=== PATIENT | male | born 1995 | race Caucasian/White ===

== ENCOUNTER 2021-10-29 12:05 | Inpatient (IN) | payer BC, MEDICAID ==
[~2021-10-29] VITALS: Ht 175.3 cm; Wt 68.9 kg
[2021-10-29] MEDS ORDERED: ZOLPIDEM TARTRATE 10 MG TABLET PO PRN (12:15)
[2021-10-29] MEDS ORDERED: PNEUMOCOCCAL VACCINE POLYVALENT 0.5 ML VIAL [PPSV23] IM. ONE (20:45)
[2021-10-29] MEDS: LORazepam 2 MG TABLET PO PRN (21:07)
[2021-10-29] MEDS: HALOPERIDOL 5 MG TABLET PO PRN (21:07)
[2021-10-29] MEDS ORDERED: RISP2TAB45 PO (21:40)
[2021-10-29] MEDS ORDERED: SERT-158 PO (21:42)
[2021-10-29] MEDS ORDERED: LITH300C3 PO (21:42)
[2021-10-29] MEDS ORDERED: DIPH-1080 PO (21:42)
[2021-10-29 21:43] VITALS: BP 127/64
[2021-10-30] MEDS ORDERED: CloNIDine HCL 0.1 MG TABLET PO PRN (07:00)
[2021-10-30] MEDS ORDERED: ALBUTEROL SULFATE HFA 90 MCG/PUFF 8 GM INHALER IH PRN (07:00)
[2021-10-30] MEDS ORDERED: DOCUSATE SODIUM 100 MG CAPSULE PO PRN (07:00)
[2021-10-30] MEDS ORDERED: MAG HYDROX/AL HYDROX/SIMETH ES 30 ML SUSPENSION UDCUP PO PRN (07:00)
[2021-10-30] MEDS ORDERED: MAGNESIUM HYDROXIDE SUSPENSION 30 ML UDCUP PO PRN (07:00)
[2021-10-30] MEDS ORDERED: PETROLATUM,WHITE 28 GM JELLY TP PRN (07:00)
[2021-10-30] MEDS ORDERED: BACITRACIN 28 GM OINTMENT TP PRN (07:00)
[2021-10-30] MEDS ORDERED: OMEPRAZOLE 20 MG CAPSULE PO PRN (07:00)
[2021-10-30] MEDS ORDERED: LOPERAMIDE HCL 2 MG CAPSULE PO PRN (07:00)
[2021-10-30] MEDS ORDERED: BENZOCAINE/MENTHOL LOZENGE PO PRN (07:00)
[2021-10-30] MEDS ORDERED: IBUPROFEN 600 MG TABLET PO PRN (07:00)
[2021-10-30] MEDS ORDERED: ACETAMINOPHEN 325 MG TABLET PO PRN (07:00)
[2021-10-30] MEDS ORDERED: ONDANSETRON HCL 4 MG TABLET PO PRN (07:00)
[2021-10-30 07:18] LABS: BASOPHILS % (AUTO) 0.3 % (0.0-2.0); EOSINOPHILS % (AUTO) 9.1 % (1.0-6.0); HEMOGLOBIN 14.4 g/dL (13.5-17.5); LYMPHOCYTES # (AUTO) 2.2 K/uL (1.0-4.8); MEAN CORPUSCULAR HEMOGLOBIN 27.1 pg (26.0-34.0); MEAN CORPUSCULAR VOLUME 85 fL (80-100); MONOCYTES # (AUTO) 0.5 K/uL (0.1-1.0); NEUTROPHILS # (AUTO) 3.8 K/uL (1.8-7.7); NEUTROPHILS % (AUTO) 53.6 % (40.0-70.0); PLATELET COUNT (AUTO) 289 K/uL (150-450); RED BLOOD CELL COUNT(AUTO) 5.31 MIL/uL (4.50-5.90); RED CELL DISTRIBUTION WIDTH 13.5 % (11.5-14.5)
[2021-10-30 07:34] LABS: HEMOGLOBIN A1C 5.1 % (3.8-5.6)
[2021-10-30 07:50] LABS: LITHIUM < 0.20 mmol/L (0.60-1.20)
[2021-10-30] MEDS: HALOPERIDOL 5 MG TABLET PO PRN (08:00)
[2021-10-30 08:06] LABS: ALANINE AMINOTRANSFERASE 26 U/L (12-78); ALBUMIN 3.3 g/dL (3.4-5.0); ALKALINE PHOSPHATASE 52 U/L (46-116); ANION GAP 8 mmol/L (8-16); ASPARTATE AMINOTRANSFERASE 16 U/L (15-37); BILIRUBIN,TOTAL 0.3 mg/dL (0.1-1.0); CALCIUM, TOTAL 8.5 mg/dL (8.8-10.5); CARBON DIOXIDE 27 mmol/L (22-29); CHLORIDE 105 mmol/L (98-107); CHOL/HDL RATIO 3.7 (4.2-7.3); CHOLESTEROL 161 mg/dL (131-200); CREATININE 0.79 mg/dL (0.60-1.30); FREE T4 (FREE THYROXINE) 1.08 ng/dL (0.76-1.46); GLOMERULAR FILTR. RATE CALC > 60 mL/min (>60); GLUCOSE,RANDOM 89 mg/dL (70-110); HDL CHOLESTEROL 43 mg/dL (40-60); LDL CHOL (CALC.) 107 mg/dL (0-130); POTASSIUM 3.8 mmol/L (3.5-5.1); SODIUM SERUM 140 mmol/L (136-145); THYROID STIMULATING HORMONE 2.66 uIU/mL (0.36-3.74); TOTAL PROTEIN, SERUM 6.7 g/dL (6.4-8.2); TRIGLYCERIDES 56 mg/dL (15-150); UREA NITROGEN, BLOOD 16 mg/dL (7-18)
[2021-10-30 08:48] VITALS: BP 144/93
[2021-10-30 20:22] VITALS: BP 109/67
[2021-10-31] MEDS: LORazepam 2 MG TABLET PO PRN (03:14)
[2021-10-31 07:28] LABS: APPEARANCE,URINE TURBID (CLEAR); BILIRUBIN,URINE NEGATIVE (NEGATIVE); GLUCOSE, URINE (UA) NEGATIVE (NEGATIVE); KETONES,URINE NEGATIVE (NEGATIVE); LEUKOCYTE ESTERASE ,URINE NEGATIVE (NEGATIVE); NITRATE,URINE NEGATIVE (NEGATIVE); OCCULT BLOOD,URINE NEGATIVE (NEGATIVE); PH,URINE 5.5 (5.0-8.0); PROTEIN,URINE TRACE mg/dL (NEGATIVE); SPECIFIC GRAVITIY, URINE 1.029 (1.003-1.030); UROBILINOGEN,URINE <=1.0 mg/dL (<=1.0)
[2021-10-31 07:36] LABS: AMPHET/METH SCREEN,URINE NEGATIVE (NEGATIVE); BARBITURATE SCREEN, URINE NEGATIVE (NEGATIVE); BENZODIAZEPINES SCREEN,URINE NEGATIVE (NEGATIVE); CANNABINOID SCREEN,URINE NEGATIVE (NEGATIVE); COCAINE SCREEN,URINE NEGATIVE (NEGATIVE); METHADONE SCREEN, URINE NEGATIVE (NEGATIVE); OPIATE SCREEN,URINE NEGATIVE (NEGATIVE)
[2021-10-31 07:38] LABS: PHENCYCLIDINE SCREEN,URINE NEGATIVE (NEGATIVE)
[2021-10-31 07:59] LABS: BACTERIA,URINE None Seen /HPF (None Seen); RBC,URINE None Seen /HPF (0-2); SQUAMOUS EPITHELIAL CELL,UR Few /LPF (None Seen); WBC,URINE 0-2 /HPF (0-5)
[2021-10-31 09:52] VITALS: BP 121/72
[2021-10-31] MEDS: RisperiDONE 2 MG TABLET PO SCH (18:09)
[2021-10-31 20:49] VITALS: BP 107/72
[2021-11-01] MEDS: LORazepam 2 MG TABLET PO PRN ×3 (02:38→16:40)
[2021-11-01] MEDS: LITHIUM CARBONATE 300 MG CAPSULE PO SCH ×2 (08:22→16:39)
[2021-11-01] MEDS: RisperiDONE 2 MG TABLET PO SCH ×2 (08:22→16:39)
[2021-11-01 08:26] VITALS: BP 134/80
[2021-11-01] MEDS: NICOTINE POLACRILEX 2 MG LOZENGE PO PRN (18:00)
[2021-11-01 20:14] VITALS: BP 140/90
[2021-11-02] MEDS: NICOTINE POLACRILEX 2 MG LOZENGE PO PRN ×4 (07:57→21:39)
[2021-11-02] MEDS: LORazepam 2 MG TABLET PO PRN ×2 (08:15→16:46)
[2021-11-02] MEDS: RisperiDONE 2 MG TABLET PO SCH ×2 (08:15→16:46)
[2021-11-02] MEDS: LITHIUM CARBONATE 300 MG CAPSULE PO SCH ×2 (08:15→16:46)
[2021-11-02 08:31] VITALS: BP 145/96
[2021-11-02 20:11] VITALS: BP 108/62
[2021-11-03] MEDS: NICOTINE POLACRILEX 2 MG LOZENGE PO PRN ×4 (03:06→17:07)
[2021-11-03 08:36] VITALS: BP 124/77
[2021-11-03] MEDS: LITHIUM CARBONATE 300 MG CAPSULE PO SCH ×2 (08:38→16:12)
[2021-11-03] MEDS: RisperiDONE 2 MG TABLET PO SCH ×2 (08:38→16:11)
[2021-11-03] MEDS: LORazepam 2 MG TABLET PO PRN ×2 (08:39→16:12)
[2021-11-03] MEDS: HALOPERIDOL 5 MG TABLET PO PRN (16:12)
[2021-11-03 20:12] VITALS: BP 112/72
[2021-11-04] MEDS: NICOTINE POLACRILEX 2 MG LOZENGE PO PRN ×3 (03:26→13:32)
[2021-11-04 08:13] VITALS: BP 140/88
[2021-11-04] MEDS: LITHIUM CARBONATE 300 MG CAPSULE PO SCH ×2 (08:18→16:50)
[2021-11-04] MEDS: RisperiDONE 2 MG TABLET PO SCH ×2 (08:18→16:50)
[2021-11-04] MEDS: LORazepam 2 MG TABLET PO PRN (08:18)
[2021-11-04 20:11] VITALS: BP 110/64
[2021-11-05] MEDS: LITHIUM CARBONATE 300 MG CAPSULE PO SCH (08:04)
[2021-11-05] MEDS: RisperiDONE 2 MG TABLET PO SCH (08:04)
[2021-11-05] MEDS: NICOTINE POLACRILEX 2 MG LOZENGE PO PRN (08:04)
[2021-11-05] MEDS: LORazepam 2 MG TABLET PO PRN (08:04)
[2021-11-05 08:34] VITALS: BP 135/80
[2021-11-05 08:51] LABS: GLUCOMETER DEV NAME(LOC) POC.BV
[2021-11-05] MEDS ORDERED: LITH300C3 PO (11:47)
[2021-11-05] MEDS ORDERED: RISP2TAB86 PO (11:47)
== END 2021-11-05 14:00 | disposition home or self-care (01) | DRG 885 ==
LOC: B3A 20:09
PROVIDERS: ADMIT Psychiatry & Neurology Psychiatry; ATTEND Psychiatry & Neurology Psychiatry
PROC: 3E0234Z Introduction of Serum, Toxoid and Vaccine into Muscle, Percutaneous Approach (ICD-10-PCS; principal; 2021-10-29)
DX: F25.9 Schizoaffective disorder, unspecified (principal); F17.200 Nicotine dependence, unspecified, uncomplicated; E55.9 Vitamin D deficiency, unspecified; K59.00 Constipation, unspecified; Z20.822 Contact with and (suspected) exposure to COVID-19; F41.9 Anxiety disorder, unspecified; Z23 Encounter for immunization
CPT/HCPCS: 80053; 80061; 80178; 80307; 81001; 83036; 84436; 84439; 84443; 85025; 86592; G0480; Q9967